=== PATIENT | female | born 1970 | race Caucasian/White ===

== ENCOUNTER 2024-03-01 06:53 | Day surgery (SDC) | payer OTHER ==
[~2024-03-01] VITALS: Ht 149.9 cm; Wt 69.9 kg
[2024-03-01 08:05] LABS: HCG,QUAL RESULT NEGATIVE (NEGATIVE)
[2024-03-01] MEDS ORDERED: fentaNYL CITRATE/PF 100 MCG/2 ML AMP ONE (08:41)
[2024-03-01] MEDS ORDERED: MIDAZOLAM HCL 5 MG/5 ML VIAL ONE (08:43)
[2024-03-01] MEDS: fentaNYL CITRATE/PF 100 MCG/2 ML AMP IVP ONE (08:54)
[2024-03-01] MEDS ORDERED: LIDOCAINE MPF 2% 20 MG/1 ML, 5 ML VIAL INH ONE (10:00)
[2024-03-01 12:58] VITALS: TEMP 98.1; O2SAT 97
[2024-03-01 14:07] VITALS: BP_SYST 104; PULSE 85; RESP 20
== END 2024-03-01 09:59 | disposition home or self-care (01) ==
LOC: SMU 06:53 → SDS 06:53
PROVIDERS: ATTEND Internal Medicine
DX: M51.16 Intervertebral disc disorders with radiculopathy, lumbar region (principal); E78.5 Hyperlipidemia, unspecified; Z98.891 History of uterine scar from previous surgery; Z90.49 Acquired absence of other specified parts of digestive tract; Z79.899 Other long term (current) drug therapy
CPT/HCPCS: 62323; 84703; J2250; J3010; Q9967; J1010; 76000; J1030